=== PATIENT | male | born 1940 | race Caucasian/White ===

== ENCOUNTER 2018-09-16 00:26 | Inpatient (IN) | payer MEDICARE ==
[~2018-09-16] VITALS: Ht 183 cm; Wt 122.0 kg
[2018-09-16] VITALS (7 sets, daily range): BP systolic 109–142; BP diastolic 54–111
--- NOTE | ~2018-09-16 | EKG ---
[place], [place] ELECTROCARDIOGRAM REPORT NAME: ELIZABETH SEWELL UNIT #: [id number] ROOM: 528 DOCTOR: HARPER DRAFT REPORT BIRTHDATE: [birth year] [facility] Test Date: 2018-09-16 Test Time: 00:52:30 Pat Name: ELIZABETH SEWELL Department: Room: 528 Gender: M Portable Canteen Operator: Aurea Juarez : 1940 Requested By: OMER ESQUIVEL DNP Order Number: [id number] Reading MD: Flores Peñaloza Measurements Intervals [place] Rate: 81 P: LA: QRS: 29 QRSD: 144 T: 2 QT: 419 QTc: 487 Interpretive Statements Atrial fibrillation Right bundle branch block Baseline wander in lead(s) V1 Compared to ECG 02/03/2018 18:11:43 Ventricular premature complex(es) no longer present Electronically Signed On 09-18-2018 8:59:00 PDT by Flores Peñaloza CM:EKGRPT:ELECTROCARDIOGRAM REPORT [id number] OMER SALEEM DRAFT REPORT OMER ESQUIVEL DNP
[~2018-09-16 00:26] MED LIST: HYDROCHLOROTH12.5 M3 PO; LISINOPRIL20 MG PO; LOPRESSOR50 M1 PO; METFORMIN1000 MG PO; NIFEDIPINE ER90 M1 PO; PANTOPRAZOLE SO40 MG PO; SIMVASTATIN80 MG PO; VITAMIN B11000 MCG/M IM; XARE20MG PO
[2018-09-16] MEDS ORDERED: SIMVASTATIN80 MG PO (00:49)
[2018-09-16] MEDS ORDERED: ZESTORETIC 20-1 EACH PO (00:49)
[2018-09-16] MEDS ORDERED: VITAMIN D32000 UNI1 PO (00:50)
[2018-09-16 00:53] LABS: BASO # 0.1 10*3/uL (0.0-0.1); BASO % 0.5 % (0.0-1.0); EOS # 0.1 10*3/uL (0.0-0.4); EOS % 1.3 % (1.0-4.0); HEMATOCRIT 39.9 % (42.0-52.0); HEMOGLOBIN 12.9 g/dl (14.0-18.0); LYMPH # 1.9 10*3/uL (1.3-4.4); LYMPH % 17.9 % (27.0-41.0); MEAN CELL VOLUME 92.8 fl (80.0-94.0); MEAN CORPUSCULAR HGB CONC 32.3 g/dl (33.0-37.0); MEAN PLATELET VOLUME 11.8 fl (9.6-12.3); MONO # 0.7 10*3/uL (0.1-1.0); MONO % 6.8 % (3.0-9.0); NEUT # 7.8 10*3/uL (2.3-7.9); NEUT % 73.2 % (47.0-73.0); PLATELET COUNT AUTOMATED 184 10*3/uL (130-400); RED CELL DISTRI WIDTH 14.6 % (0-14.5); WHITE BLOOD COUNT 10.7 10*3/uL (4.8-10.8)
[2018-09-16 01:02] LABS: INTERNATIONAL NORM RATIO 1.9 (2.0-3.5)
[2018-09-16 01:09] LABS: ALBUMIN 3.7 gm/dl (3.1-4.5); ALKALINE PHOSPHATASE 90 U/L (45-117); BUN 22 mg/dl (7-24); CHLORIDE 106 mmol/L (98-107); CREATININE 1.26 mg/dL (0.70-1.30); POTASSIUM 4.1 mmol/L (3.5-5.1); SGOT/AST 11 IU/L (3-35); SGPT/ALT 15 U/L (12-78); SODIUM 138 mmol/L (136-145); TOTAL PROTEIN 7.4 gm/dL (6.4-8.2)
[2018-09-16 01:10] LABS: TROPONIN I < 0.015 ng/ml (<0.045)
--- NOTE | 2018-09-16 01:27 | NUR ---
PATIENT ATTEMPTED TO URINATE IN URINAL AT THIS TIME WITHOUT SUCCESS. WILL PROMPT PATIENT AGAIN AFTER BIT.
[2018-09-16 02:46] LABS: BILIRUBIN NEGATIVE (NEGATIVE); BLOOD 3+ (NEGATIVE); CLARITY SL CLOUDY (CLEAR); COLOR YELLOW (YELLOW); GLUCOSE NEGATIVE (NEGATIVE); KETONE TRACE (NEGATIVE); LEUKO ESTERASE NEGATIVE (NEGATIVE); NITRITE NEGATIVE (NEGATIVE)
[2018-09-16 02:52] LABS: RBC TNTC rbc/hpf (0-2); WBC 0-2 wbc/hpf (0-5)
--- NOTE | 2018-09-16 05:32 | NUR ---
A 78, admitted to , under the services of RAY Childers DO with a diagnosis of AMBULATORY DISFUNCTION. Chief complaint is FALL AT HOME. Patient arrived via bed from ER. Monitor applied. Initial assessment completed. Vital signs taken and recorded. RAY CHILDERS DO notified of admission to the unit. Orders received. See assessment for past medical history, medications and allergies. Patient and/or family oriented to unit. [facility] visitation policy reviewed. Clothing/patient valuable form completed. ZHEN NEFF
[2018-09-16 06:07] LABS: BASO % 0.3 % (0.0-1.0); EOS # 0.2 10*3/uL (0.0-0.4); EOS % 1.6 % (1.0-4.0); HEMATOCRIT 38.2 % (42.0-52.0); HEMOGLOBIN 12.6 g/dl (14.0-18.0); LYMPH # 2.2 10*3/uL (1.3-4.4); LYMPH % 22.8 % (27.0-41.0); MEAN CELL VOLUME 93.2 fl (80.0-94.0); MEAN CORPUSCULAR HGB 30.7 pg (27.0-31.0); MEAN PLATELET VOLUME 11.9 fl (9.6-12.3); MONO # 0.7 10*3/uL (0.1-1.0); MONO % 6.7 % (3.0-9.0); NEUT # 6.6 10*3/uL (2.3-7.9); NEUT % 68.3 % (47.0-73.0); PLATELET COUNT AUTOMATED 169 10*3/uL (130-400); RED CELL DISTRI WIDTH 14.5 % (0-14.5); WHITE BLOOD COUNT 9.7 10*3/uL (4.8-10.8)
[2018-09-16 06:22] LABS: ALBUMIN 3.5 gm/dl (3.1-4.5); ALKALINE PHOSPHATASE 86 U/L (45-117); BUN 20 mg/dl (7-24); CHLORIDE 108 mmol/L (98-107); CHOLESTEROL 106 mg/dL (<200); CPK 129 U/L (39-308); CREATININE 1.03 mg/dL (0.70-1.30); HDL CHOLESTEROL 29 mg/dl (40-60); LDL CHOLESTEROL 57 mg/dL (9-159); PHOSPHOROUS 2.7 mg/dL (2.5-4.9); POTASSIUM 3.9 mmol/L (3.5-5.1); SGOT/AST 15 IU/L (3-35); SGPT/ALT 14 U/L (12-78); SODIUM 140 mmol/L (136-145); TOTAL PROTEIN 7.1 gm/dL (6.4-8.2); TRIGLYCERIDES 102 mg/dl (<150); VLDL CHOLESTEROL 20 mg/dL (6-40)
--- NOTE | 2018-09-16 06:48 | NUR ---
REVIEWED BY ER NURSE WHEN FAMILY HAD HOME MEDICATIONS IN ER
--- NOTE | 2018-09-16 07:21 | NUR ---
PHYSICAL THERAPY Nursing screen received. PT orders also received. Thank you. Millicent Candelario,PT
--- NOTE | 2018-09-16 08:19 | NUR ---
CALLED [facility] RESIDENT, NO ANSWER. WILL RETRY.
--- NOTE | 2018-09-16 08:21 | NUR ---
DR. GAFFNEY NOTIFIED OF CONSULT
--- NOTE | 2018-09-16 08:45 | NUR ---
PHYSICAL THERAPY Patient evaluated on 5, full evaluation to follow. Continue with PT as per plan of care with fall and acute debility precautions. Will require SNF. PAtient is moderate complexity via chart review, tests and evaluation: 12429. Thank you for this referral. Millicent Candelario,PT
--- NOTE | 2018-09-16 09:32 | NUR ---
Occupational Therapy evaluation completed on 5 with carol roberts to follow. Precautions include morbid obesity, fall risk, IV UE, impaired memory, moderate complexity level 29861 via chart review, testing and evaluation. Recommend OT per POC and SNF to enable max level of ADls and safety. Thank you for this referral. Karolina Olivo OTR/L
[2018-09-16 09:52] LABS: VITAMIN D, 25-HYDROXY 68.3 ng/mL (30-100)
--- NOTE | 2018-09-16 10:40 | NUR ---
NOTIFIED DR GAFFNEY OF NEW CONSULT FOR FOOT CARE WHILE HE ROUNDED.
--- NOTE | 2018-09-16 15:57 | NUR ---
Nursing screen received and Occupational Therapy evaluation completed. Thank you. Karolina Olivo OTR/l
--- NOTE | 2018-09-16 19:00 | NUR ---
PT AWAKE IN BED DURING BEDSIDE SHIFT REPORT. NO C/O VOICED. CALL LIGHT IN REACH.
--- NOTE | 2018-09-16 23:00 | NUR ---
REPORT RECEIVED FROM NEFTALY GIRARD. PATIENT SLEEPING AT THIS TIME. HAS NO COMPLAINTS AT THIS TIME. WILL MONITOR.
[2018-09-17] VITALS: BP 112/54
[2018-09-17 05:43] LABS: ALBUMIN 3.1 gm/dl (3.1-4.5); ALKALINE PHOSPHATASE 86 U/L (45-117); BUN 23 mg/dl (7-24); CHLORIDE 108 mmol/L (98-107); CPK 124 U/L (39-308); CREATININE 1.04 mg/dL (0.70-1.30); POTASSIUM 3.8 mmol/L (3.5-5.1); SGOT/AST 15 IU/L (3-35); SGPT/ALT 14 U/L (12-78); SODIUM 140 mmol/L (136-145); TOTAL PROTEIN 6.4 gm/dL (6.4-8.2)
[2018-09-17 05:55] LABS: BASO % 0.3 % (0.0-1.0); EOS # 0.2 10*3/uL (0.0-0.4); EOS % 1.9 % (1.0-4.0); HEMATOCRIT 36.6 % (42.0-52.0); HEMOGLOBIN 11.9 g/dl (14.0-18.0); LYMPH # 1.8 10*3/uL (1.3-4.4); LYMPH % 20.6 % (27.0-41.0); MEAN CELL VOLUME 93.6 fl (80.0-94.0); MEAN CORPUSCULAR HGB 30.4 pg (27.0-31.0); MEAN CORPUSCULAR HGB CONC 32.5 g/dl (33.0-37.0); MEAN PLATELET VOLUME 12.3 fl (9.6-12.3); MONO # 0.5 10*3/uL (0.1-1.0); MONO % 5.8 % (3.0-9.0); NEUT # 6.3 10*3/uL (2.3-7.9); NEUT % 71.1 % (47.0-73.0); PLATELET COUNT AUTOMATED 141 10*3/uL (130-400); RED BLOOD COUNT 3.91 10*6/uL (4.50-5.90); RED CELL DISTRI WIDTH 14.6 % (0-14.5); WHITE BLOOD COUNT 8.9 10*3/uL (4.8-10.8)
--- NOTE | 2018-09-17 07:10 | NUR ---
PT IS AWAKE AND SITTING UP IN BED AT THIS TIME. REPORT RECIEVED FROM NEFTALY KWOK. PT STATES THAT HE IS FEELING WELL AND HAS NO COMPLAINTS AT THIS TIME. RESPIRATIONS ARE EASY AND NONLABORED. CALL LIGHT WITHIN REACH, BED ALARM ON. WILL CONTINUE TO MONITOR.
[2018-09-17 08:00] VITALS: BP 116/60
--- NOTE | 2018-09-17 10:05 | NUR ---
24 HR CHART CHECK COMPLETE.
[2018-09-17 12:00] VITALS: BP 136/79
[2018-09-17 16:00] VITALS: BP 134/69
[2018-09-17 20:00] VITALS: BP 121/56
--- NOTE | 2018-09-17 21:28 | NUR ---
DR. CLEMENT NOTIFIED OF PATIENT'S GROIN BEING EXCORIATED. NEW ORDER FOR NYSTATIN POWDER.
[2018-09-18] VITALS: BP 133/61
[2018-09-18 06:03] LABS: BUN 28 mg/dl (7-24); CHLORIDE 104 mmol/L (98-107); CREATININE 1.04 mg/dL (0.70-1.30); PHOSPHOROUS 2.3 mg/dL (2.5-4.9); POTASSIUM 3.9 mmol/L (3.5-5.1); SODIUM 138 mmol/L (136-145)
[2018-09-18 06:04] LABS: BASO % 0.2 % (0.0-1.0); EOS # 0.1 10*3/uL (0.0-0.4); EOS % 0.8 % (1.0-4.0); HEMATOCRIT 35.1 % (42.0-52.0); HEMOGLOBIN 11.5 g/dl (14.0-18.0); LYMPH # 1.6 10*3/uL (1.3-4.4); LYMPH % 12.5 % (27.0-41.0); MEAN CELL VOLUME 92.6 fl (80.0-94.0); MEAN CORPUSCULAR HGB 30.3 pg (27.0-31.0); MEAN CORPUSCULAR HGB CONC 32.8 g/dl (33.0-37.0); MEAN PLATELET VOLUME 12.6 fl (9.6-12.3); MONO # 0.8 10*3/uL (0.1-1.0); NEUT # 10.5 10*3/uL (2.3-7.9); NEUT % 79.9 % (47.0-73.0); PLATELET COUNT AUTOMATED 134 10*3/uL (130-400); RED BLOOD COUNT 3.79 10*6/uL (4.50-5.90); RED CELL DISTRI WIDTH 14.6 % (0-14.5); WHITE BLOOD COUNT 13.1 10*3/uL (4.8-10.8)
--- NOTE | 2018-09-18 07:58 | NUR ---
24 HR CHART CHECK COMPLETE
[2018-09-18 08:00] VITALS: BP 111/51
[2018-09-18 12:00] VITALS: BP 101/84
--- NOTE | 2018-09-18 15:46 | NUR ---
MR. SEWELL HAD 1 EPISODE OF INCONTINENCE OF BOWEL TODAY.STATED HE TRIED TO MAKE IT TO THE RESTROOM. HE WAS CLEANED UP AMD HAS NO FURTHER INCICDENT A THIS TIME.
[2018-09-18 16:00] VITALS: BP 108/55
--- NOTE | 2018-09-18 19:10 | NUR ---
PT IS AWAKE AND SITTING UP IN BED EATING HIS DINNER. HE STATES THAT HE WANTS TO GO BACK HOME BUT THAT HIS FAMILY WANTS HIM TO GO TO A HALF-WAY FOR PT/OT. THERE ARE NO S/S OF DISTRESS OR C/O PAIN MADE AT THIS TIME. BED IS LOW, CALL LIGHT WITHIN REACH. WILL CONTINUE TO MONITOR.
[2018-09-18 20:00] VITALS: BP 121/62
--- NOTE | 2018-09-18 21:59 | NUR ---
24 HR CHART CHECK COMPLETE.
[2018-09-19] VITALS: BP 119/65
[2018-09-19 06:47] LABS: BASO % 0.2 % (0.0-1.0); EOS # 0.1 10*3/uL (0.0-0.4); EOS % 0.6 % (1.0-4.0); HEMATOCRIT 33.1 % (42.0-52.0); HEMOGLOBIN 11.1 g/dl (14.0-18.0); LYMPH # 1.5 10*3/uL (1.3-4.4); LYMPH % 11.9 % (27.0-41.0); MEAN CELL VOLUME 92.2 fl (80.0-94.0); MEAN CORPUSCULAR HGB 30.9 pg (27.0-31.0); MEAN CORPUSCULAR HGB CONC 33.5 g/dl (33.0-37.0); MEAN PLATELET VOLUME 12.6 fl (9.6-12.3); MONO # 0.7 10*3/uL (0.1-1.0); NEUT # 9.9 10*3/uL (2.3-7.9); NEUT % 80.6 % (47.0-73.0); PLATELET COUNT AUTOMATED 122 10*3/uL (130-400); RED BLOOD COUNT 3.59 10*6/uL (4.50-5.90); RED CELL DISTRI WIDTH 14.6 % (0-14.5); WHITE BLOOD COUNT 12.3 10*3/uL (4.8-10.8)
[2018-09-19 07:11] LABS: BUN 33 mg/dl (7-24); CHLORIDE 104 mmol/L (98-107); CREATININE 1.07 mg/dL (0.70-1.30); POTASSIUM 3.9 mmol/L (3.5-5.1); SODIUM 135 mmol/L (136-145)
--- NOTE | 2018-09-19 07:44 | NUR ---
24 HR CHART CHECK COMPLETE
[2018-09-19 08:00] VITALS: BP 116/56
--- NOTE | 2018-09-19 09:45 | NUR ---
PHYSICAL THERAPY Patient seen this am 1:1 for therapy visit and was sittin up EOB following breakfast upon therapist arrival. Patient voices no new c/o's and was joined by 2 of his Sisters for entire therapy session. Patient transfers sit to stand, CGA, demonstrating very slow, steady rise and ambulates 50'x 1 with use of std walker. Patient needed v/c to improve safe step sequence, while improving walker navigation as patient had increased difficulty advancing standard walker. Patient returned to EOB sit and educated on benefits of using a wh walker and agreed to give on a try. Patient ambulated additional 50'x 1, this time with use wh walker, CGA, demonstrating improved smoother gait pattern with less difficulty, however still unsteady during 180 degree turn arounds. Patient returned to EOB sit with mild fatigue and remained with call light, tray table and telephone. Patient stated he felt more comfortable using wh walker and will continue per POC as tolerated. Total treatment time 17 minutes. Devan Laureano, ARTS MANAGER
--- NOTE | 2018-09-19 11:05 | NUR ---
OT NOTE Pt was seen this A.M. 1:1 for 15 minute OT session. Upon arrival pt was sitting upright on the EOB. Pt identified by name and and had no complaints at this time. Sit to stand completed from bed level with Saul and use of w/w for UE support. Functional mobility completed into the bathroom with CGA and use of w/w. Pt required min verbal prompts throughout to correct walker safety due to poor navigation and picking all four points off the ground. There he transferred on to standard commode with CGA and use of grab bar. Clothing management completed with CGA for safety. Pt transferred off standard commode with modA due to low surface. Pt then stood sink side while washing his hands with CGA. Pt had one LOB backwards that required modA to correct. Educated pt on safety with the walker while at the sink due to staying back a far distance and off to the R side. Pt then returned to the EOB where he was left sitting upright with call light in hand, tray table in place, and family at bedside. Continue with POC as able. ANA Reza/Nima
[2018-09-19 12:00] VITALS: BP 103/61
--- NOTE | 2018-09-19 12:45 | NUR ---
Patient requesting a referral to [facility]. Contacted facility and faxed referral. 3 night stay completed, waiting on review/acceptance.
--- NOTE | 2018-09-19 13:35 | NUR ---
Patient is accepted to [facility], 3 night stay complete, hospital exemption complete. Patient is ok to go if medically stable for discharge.
--- NOTE | 2018-09-19 13:58 | NUR ---
Floral Clerk in to talk to patient. Patient states lives at HOME with ALONE. There are FEW steps in the home. Physician: JERAD [facility]acy: [facility] Home health services: NONE Patient's level of ADLs: MODERATE ASSIST Patient has working utilities: YES DME: [facility] Follow-up physician's appointment after d/c: PT WANTS TO GO TO SNF AND WILL MAKE APPOINTMENT AFTER DISCHARGE Does patient want to access PORTAL?: NO Discharge plan PT AND FAMILY IS REQUESTING A SKILLED STAY FOR REHAB PRIOR TO RETURNING HOME. GIVEN LIST OF FACILITIES AND THEY CHOSE [facility] BECAUSE THEY HAD FAMILY MEMBERS THERE BEFORE. EVENT COORDINATOR MARKETING AND SALES INFORMED AND WILL MAKE REFERRAL. WILL CONTINUE TO FOLLOW. . NAT HALE
[2018-09-19] MEDS ORDERED: NYSTOP60 GM T (14:12)
--- NOTE | 2018-09-19 15:18 | NUR ---
Patient discharged to [facility], transportation scheduled for 5 pm with [facility]. dc info faxed, [place] notified, ward service supervisor notified. Attempted to call patients sister and got voicemail. left message.
[2018-09-19] MEDS ORDERED: LASIX20 MG PO (15:36)
--- NOTE | 2018-09-19 16:17 | NUR ---
PHYSICAL THERAPY CO-SIGN I approve of the Phyical Therapy notes written above. SUZANNE LEVIN PT
--- NOTE | 2018-09-19 16:18 | NUR ---
OCCUPATIONAL THERAPY CO-SIGN I approve of the Occupational Therapy notes written above. NAYA HUDSON OTR/Nima
--- NOTE | 2018-09-19 17:05 | NUR ---
REPORT CALLED TO MAILE HIGGINBOTHAM AT [facility]
--- NOTE | 2018-09-19 18:49 | NUR ---
PT LEFT VIA WHEELCHAIR ACCOMPANIED BY WHIT FROM [facility] IN THE CARE OF HIS SISTER. PT BEING TAKEN TO [facility]. PACKET SENT WITH PT.
== END 2018-09-19 18:49 | disposition other institution (70) | DRG 682 ==
LOC: ED 00:26 → 5E 03:27
PROVIDERS: Emergency Medicine Emergency Medical Services; Internal Medicine; Nurse Practitioner Family; ADMIT Emergency Medicine
DX: N17.0 Acute kidney failure with tubular necrosis (principal); I50.21 Acute systolic (congestive) heart failure; E44.0 Moderate protein-calorie malnutrition; E66.01 Morbid (severe) obesity due to excess calories; I48.2 Chronic atrial fibrillation; R26.2 Difficulty in walking, not elsewhere classified; D50.9 Iron deficiency anemia, unspecified; R31.9 Hematuria, unspecified; Z66 Do not resuscitate; Z51.5 Encounter for palliative care; B35.1 Tinea unguium; E11.65 Type 2 diabetes mellitus with hyperglycemia; E78.5 Hyperlipidemia, unspecified; E83.42 Hypomagnesemia; D72.829 Elevated white blood cell count, unspecified; Z53.29 Procedure and treatment not carried out because of patient's decision for other reasons; E86.0 Dehydration; E83.39 Other disorders of phosphorus metabolism; I11.0 Hypertensive heart disease with heart failure; S30.0XXA Contusion of lower back and pelvis, initial encounter; R33.9 Retention of urine, unspecified; W18.30XA Fall on same level, unspecified, initial encounter; Y93.89 Activity, other specified; Y92.098 Other place in other non-institutional residence as the place of occurrence of the external cause; Y99.8 Other external cause status; Z87.891 Personal history of nicotine dependence; Z79.899 Other long term (current) drug therapy; Z79.01 Long term (current) use of anticoagulants; Z68.36 Body mass index [BMI] 36.0-36.9, adult

== ENCOUNTER 2018-11-03 16:08 | Inpatient (IN) | payer MEDICARE ==
[~2018-11-03] VITALS: Ht 182.8 cm; Wt 107.6 kg
--- NOTE | ~2018-11-03 | EKG ---
[place], [place] ELECTROCARDIOGRAM REPORT NAME: ELIZABETH SEWELL UNIT #: [id number] ROOM: 412 DOCTOR: HARPER DRAFT REPORT BIRTHDATE: [birth year] [facility] Test Date: 2018-11-03 Test Time: 16:58:30 Pat Name: ELIZABETH SEWELL Department: Room: 412 Gender: M Yard Person: : 1940 Requested By: OMER ESQUIVEL DNP Order Number: [id number] Reading MD: Crystal Cardona MD Measurements Intervals [place] Rate: 111 P: GA: QRS: 9 QRSD: 140 T: 19 QT: 369 QTc: 502 Interpretive Statements Atrial fibrillation Ventricular premature complex Right bundle branch block Compared to ECG 09/16/2018 00:52:30 Ventricular premature complex(es) now present Electronically Signed On 11-16-2018 3:32:26 PDT by Crystal Cardona MD CM:EKGRPT:ELECTROCARDIOGRAM REPORT [id number] OMER ESQUIVEL DNP EPIPHANY DRAFT REPORT OMER ESQUIVEL DNP
[~2018-11-03 16:08] MED LIST changes: +LASIX20 MG PO; +NYSTOP60 GM T; +VITAMIN D32000 UNI1 PO; +ZESTORETIC 20-1 EACH PO
[2018-11-03 16:15] VITALS: BP 132/72
--- NOTE | 2018-11-03 17:00 | NUR ---
THIS PT IS AWAKE/ALERT TO PERSON AND PLACE NOW. FAMILY WHO IS WITH PT AT THIS TIME INDICATES THAT HE IS UNABLE TO CARE FOR HIMSELF ALONE AT HOME ANY LONGER. HE IS ONLY ABLE TO WALK VERY SHORT DISTANCES WITH A WALKER. THEY ARE INTERESTED IN [facility] PLACEMENT FOR HIM. PT INDICATES THAT HE HAS TROUBLE WALKING. MOON HIGGINBOTHAM
[2018-11-03 17:19] LABS: BASO # 0.1 10*3/uL (0.0-0.1); BASO % 0.5 % (0.0-1.0); EOS # 0.4 10*3/uL (0.0-0.4); EOS % 3.5 % (1.0-4.0); HEMATOCRIT 43.1 % (42.0-52.0); LYMPH # 2.4 10*3/uL (1.3-4.4); LYMPH % 21.8 % (27.0-41.0); MEAN CELL VOLUME 90.4 fl (80.0-94.0); MEAN CORPUSCULAR HGB 29.4 pg (27.0-31.0); MEAN CORPUSCULAR HGB CONC 32.5 g/dl (33.0-37.0); MEAN PLATELET VOLUME 10.7 fl (9.6-12.3); MONO # 0.6 10*3/uL (0.1-1.0); MONO % 5.5 % (3.0-9.0); NEUT # 7.4 10*3/uL (2.3-7.9); NEUT % 68.1 % (47.0-73.0); PLATELET COUNT AUTOMATED 314 10*3/uL (130-400); RED BLOOD COUNT 4.77 10*6/uL (4.50-5.90); WHITE BLOOD COUNT 10.9 10*3/uL (4.8-10.8)
[2018-11-03 17:30] LABS: ACT PARTIAL THROMBO TIME 29.9 SECONDS (20.0-32.1); INTERNATIONAL NORM RATIO 1.1 (2.0-3.5)
[2018-11-03 17:34] LABS: ALBUMIN 3.3 gm/dl (3.1-4.5); ALKALINE PHOSPHATASE 109 U/L (45-117); BUN 33 mg/dl (7-24); CHLORIDE 103 mmol/L (98-107); CREATININE 1.31 mg/dL (0.70-1.30); LIPASE 203 U/L (73-393); POTASSIUM 4.4 mmol/L (3.5-5.1); SGOT/AST 15 IU/L (3-35); SGPT/ALT 18 U/L (12-78); SODIUM 137 mmol/L (136-145); TOTAL PROTEIN 8.4 gm/dL (6.4-8.2)
[2018-11-03 17:36] LABS: TROPONIN I < 0.015 ng/ml (<0.045)
--- NOTE | 2018-11-03 17:49 | NUR ---
LA 3.0 PLANT SUPERINTENDENT ALVIN NOTIFIED
[2018-11-03 18:02] LABS: BILIRUBIN NEGATIVE (NEGATIVE); BLOOD 2+ (NEGATIVE); CLARITY SL CLOUDY (CLEAR); COLOR YELLOW (YELLOW); GLUCOSE NEGATIVE (NEGATIVE); KETONE TRACE (NEGATIVE); LEUKO ESTERASE 3+ (NEGATIVE); NITRITE POSITIVE (NEGATIVE); PH 5.5 (5.0-9.0); UROBILINOGEN 0.2 E.U./dl (0.2-1.0)
[2018-11-03 18:10] LABS: BACTERIA 1+; MUCOUS 1+; RBC 16-20 rbc/hpf (0-2); WBC 21-30 wbc/hpf (0-5)
[2018-11-03 20:30] VITALS: BP 108/86
--- NOTE | 2018-11-03 20:30 | NUR ---
A 78, admitted to , under the services of FELIPE Guidry DO with a diagnosis of UTI, SEPSIS. Chief complaint is INABILITY TO AMBULATE. Patient arrived via bed from ER. Monitor applied. Initial assessment completed. Vital signs taken and recorded. FELIPE GUIDRY DO notified of admission to the unit. Orders received. See assessment for past medical history, medications and allergies. Patient and/or family oriented to unit. [facility] Clothing/patient valuable form completed. FLOR GONZALES
--- NOTE | 2018-11-03 22:00 | NUR ---
NOTIFIED DR. TAYLOR MEDICATIONS WERE UNABLE TO BE VERIFIED PATIENTS SISTER LEFT WITH MED LIST AND THE PATIENT GOES THROUGHT HE VA SO THERE IS NO CLAIM HISTORY. ALSO WANTD TO KNOW IF WITH HISTORY OF CHF IF SHE WANTED THE SECOND BAG RAN AT 999 LIKE WAS ORDERED IN ER, BECAUSE CURRENTLY THIS NURSE HAS IT RUNNING AT 80. SHE STATED TO KEEP THE BAG AT 80 THAT WAS FINE THE PATIENT HAS PITTING EDEMA TO LOWER EXTREMITIES
--- NOTE | 2018-11-03 23:40 | NUR ---
PT SLEEPING. NO DISTRESS NOTED. CALL LIGHT WITHIN REACH, WILL MONITOR
[2018-11-04] VITALS: BP 126/69
[2018-11-04 03:55] LABS: BILIRUBIN NEGATIVE (NEGATIVE); BLOOD 1+ (NEGATIVE); CLARITY SL CLOUDY (CLEAR); COLOR YELLOW (YELLOW); GLUCOSE NEGATIVE (NEGATIVE); KETONE NEGATIVE (NEGATIVE); LEUKO ESTERASE 2+ (NEGATIVE); NITRITE POSITIVE (NEGATIVE); SPECIFIC GRAVITY 1.015 (1.005-1.030); UROBILINOGEN 0.2 E.U./dl (0.2-1.0)
[2018-11-04 04:02] LABS: BACTERIA 1+; RBC 16-20 rbc/hpf (0-2); WBC 41-50 wbc/hpf (0-5)
[2018-11-04 06:23] LABS: BASO # 0.1 10*3/uL (0.0-0.1); BASO % 0.6 % (0.0-1.0); EOS # 0.3 10*3/uL (0.0-0.4); EOS % 3.7 % (1.0-4.0); HEMATOCRIT 39.4 % (42.0-52.0); HEMOGLOBIN 12.6 g/dl (14.0-18.0); LYMPH # 2.3 10*3/uL (1.3-4.4); MEAN CELL VOLUME 90.6 fl (80.0-94.0); MEAN PLATELET VOLUME 10.8 fl (9.6-12.3); MONO # 0.6 10*3/uL (0.1-1.0); MONO % 6.1 % (3.0-9.0); NEUT # 5.8 10*3/uL (2.3-7.9); PLATELET COUNT AUTOMATED 261 10*3/uL (130-400); RED BLOOD COUNT 4.35 10*6/uL (4.50-5.90); RED CELL DISTRI WIDTH 14.1 % (0-14.5); WHITE BLOOD COUNT 9.1 10*3/uL (4.8-10.8)
[2018-11-04 06:35] LABS: CHLORIDE 106 mmol/L (98-107); POTASSIUM 3.9 mmol/L (3.5-5.1); SODIUM 139 mmol/L (136-145)
[2018-11-04 06:51] LABS: ACT PARTIAL THROMBO TIME 27.6 SECONDS (20.0-32.1); INTERNATIONAL NORM RATIO 1.1 (2.0-3.5)
--- NOTE | 2018-11-04 06:51 | NUR ---
PHYSICAL THERAPY Nursing screen received. PT orders also received. Thank you. Millicent Candelario,PT
[2018-11-04 06:52] LABS: ALBUMIN 2.9 gm/dl (3.1-4.5); ALKALINE PHOSPHATASE 89 U/L (45-117); BUN 27 mg/dl (7-24); CREATININE 0.92 mg/dL (0.70-1.30); PHOSPHOROUS 3.3 mg/dL (2.5-4.9); SGOT/AST 11 IU/L (3-35); SGPT/ALT 13 U/L (12-78); TOTAL PROTEIN 7.3 gm/dL (6.4-8.2)
--- NOTE | 2018-11-04 07:38 | NUR ---
DR. SIDHU NOTIFIED OF CONSULT
[2018-11-04 08:00] VITALS: BP 128/74
--- NOTE | 2018-11-04 08:29 | NUR ---
Patient not available for OT evaluation as he was eating and with nursing for am care. Karolina Olivo OTR/l
--- NOTE | 2018-11-04 09:05 | NUR ---
PHYSICAL THERAPY 8:29 Eating breakfast. 8:45 In the restroom. Millicent Candelario,PT
[2018-11-04 09:47] VITALS: BP 119/32
--- NOTE | 2018-11-04 10:39 | NUR ---
Occupational Therapy evaluation completed on 4 with full eval to follow. Precautions include wheeled walker use, back pain/fall risk,low complexity level 29166 via chart review, testing and evaluation. Recommend OT per POC and snf to enable max level of safety and ADls. Thank you for this referral. Karolina Olivo OTR/l
--- NOTE | 2018-11-04 11:02 | NUR ---
PHYSICAL THERAPY Patient evaluated on 4, full evaluation to follow. Continue with PT as per plan of care with fall, alarm and acute debility precautions. Will require SNF. PAtient is moderate complexity via chart review, tests and evaluation: 32876. Thank you for this referral. Millicent Candelario,PT
--- NOTE | 2018-11-04 11:46 | NUR ---
Bakeshop Cleaner in to talk to patient. Patient states lives at HOME with SISTER. There are FEW steps in the home. Physician: [facility] Pharmacy: [facility]: PT STATES NONE Patient's level of ADLs: MODERATE ASSIST Patient has working utilities: YES DME: WALKER Follow-up physician's appointment after d/c: WILL BE MADE BY HOSPITALIST NURSE DIRECTOR ON DISCHARGE Does patient want to access PORTAL?: NO Discharge plan PT STATES HE WAS AT [facility] FOR 20 DAYS THEN LEFT AND MOVED IN WITH HIS SISTER. STATES HE IS TOO MUCH FOR HIS SISTER TO CARE FOR AND WANTS TO GO BACK TO A SNF. STATES HIS SISTER WILL BE IN LATER AND WANTS ME TO SPEAK TO HER ABOUT SKILLED STAY. WILL DISCUSS WITH SISTER WHEN SHE COMES IN. WILL CONTINUE TO FOLLOW. . NAT HALE
[2018-11-04 11:58] VITALS: BP 130/50
--- NOTE | 2018-11-04 12:24 | NUR ---
In to see patient with Fiona Coyne casework specialist. Discussed placement options with patient, brother, sister and brother in law. they are stating they are unable to care for patient at home anymore and he needs placement. Patient has used his 20 100% Medicare pay days and doesn't have enough money to pay the copay for snf placement. Family is working on getting patient medicaid but has not yet completed the application. I explained to them we could send his information to [facility] and see if they can accept the patient pending medicaid, they were in agreement. They are going to go to speak with Elaina at [facility]. Contacted [facility] and faxed referral. Waiting on review/acceptance.
--- NOTE | 2018-11-04 14:04 | NUR ---
Nursing screen received and Occupational Therapy referral received. Thank you. Karolina Olivo OTR/l
--- NOTE | 2018-11-04 15:00 | NUR ---
[facility] has accepted this patient and will assist in appying for his medicaid. Hospital exemption complete. 3 night stay required. patient is ok to go to [facility] on Wednesday11/06/18 after 3 nights complete, if he is medically stable for discharge.
[2018-11-04 16:12] VITALS: BP 130/75
[2018-11-04] MEDS ORDERED: B121000 MCG/1 IM (17:30)
--- NOTE | 2018-11-04 17:31 | NUR ---
HOME MEDICATION LIST UPDATED FROM VA LIST, NURSE SANDI THAT CURRENTLY HAS PATIENT MADE AWARE.
[2018-11-05] VITALS: BP 129/68
--- NOTE | 2018-11-05 | NUR ---
RESTING IN BED WITH EYES CLOSED. PULSE OX 94% ON ROOM AIR. NO DISTRESS NOTED; CALL LIGHT WITHIN REACH.
[2018-11-05 08:00] VITALS: BP 143/71
--- NOTE | 2018-11-05 08:00 | NUR ---
ALERT AND ORIENTED, UP TO BR X 2 ASSIST, PT AMBULATES INDEPENDENTLY WITH WALKER
[2018-11-05 11:22] VITALS: BP 142/76
[2018-11-05 12:00] VITALS: BP 142/76
--- NOTE | 2018-11-05 14:49 | NUR ---
VS AT BEDSIDE, NO CHANGE IN ASSESSMENT
--- NOTE | 2018-11-05 15:29 | NUR ---
Shift chart check completed.24 HR chart check completed.
[2018-11-05 16:00] VITALS: BP 136/58
--- NOTE | 2018-11-05 16:32 | NUR ---
ON ASSESSMENT PATIENT IS RESTING EASILY IN BED. CLAIMS HE'S GOING "TO BE LEAVING TOMORROW SOMETIME". NO VOICED C/O PAIN OR SHORTNESS OF BREATH. HE'S HAD VISITORS TODAY. SEE ALL APPROPRIATE INTERVENTIONS.
[2018-11-05 20:00] VITALS: BP 118/56
--- NOTE | 2018-11-05 20:00 | NUR ---
RESTING IN BED VISITING WITH FAMILY. HEP LOCK INTACT TO RIGHT ARM; SITE ASYMPTOMATIC. PULSE OX 96% ON ROOM AIR. PT. VOICES NO C/O AT THIS TIME; NO DISTRESS NOTED. CALL LIGHT WITHIN REACH.
--- NOTE | 2018-11-05 22:00 | NUR ---
BLOOD SUGAR 186; COVERAGE GIVEN PER EMAR.
[2018-11-06] VITALS: BP 111/57
--- NOTE | 2018-11-06 06:00 | NUR ---
BLOOD SUGAR 116; NO COVERAGE REQUIRED.
[2018-11-06 08:00] VITALS: BP 121/75
--- NOTE | 2018-11-06 08:28 | NUR ---
24 HR chart check completed.
--- NOTE | 2018-11-06 09:00 | NUR ---
DR LEWIS AND TEAM HERE TO ASSESS PATIENT AND DISCUSS PLAN OF CARE
--- NOTE | 2018-11-06 09:00 | NUR ---
RESTING IN BED WITH NO DISTRESS NOTED. RESPIRATIONS EASY. LUNGS DIMINISHED, CLEAR. PULSE OX 96% RA. TRACE BLE EDEMA. OFFERED ABD EDUCATED REGARDING TEDS, DECLINED. CALL LIGHT WITHIN REACH. NO VOICED COMPLAINTS. BED ALARM MAINTAINED FOR SAFETY
[2018-11-06 12:00] VITALS: BP 130/86
--- NOTE | 2018-11-06 13:15 | NUR ---
SISTER PRESENT AT DESK, VOICES CONCERN OVER DISCHARGE. PER FAMILY, PATIENT WAS TO STAY UNTIL WEDNESDAY. ACCEPTING FACILITY DOES NOT HAVE FUNCTIONING TOILET. DEMANDING TO SPEAK TO . DR LEWIS PRESENT ON FLOOR AND INFORMED.
--- NOTE | 2018-11-06 13:25 | NUR ---
DR LEWIS SPOKE WITH FAMILY. D/C ON HOLD UNTIL WEDNESDAY
--- NOTE | 2018-11-06 15:30 | NUR ---
DR MAGALLON CARDIOLOGY HERE TO ASSESS PATIENT AND DISCUSS PLAN OF CARE. RECORDS FROM NOAH PALACIO
[2018-11-06 16:00] VITALS: BP 125/60
[2018-11-06 20:00] VITALS: BP 111/53
[2018-11-07] VITALS: BP 123/57
[2018-11-07 08:00] VITALS: BP 123/57
--- NOTE | 2018-11-07 09:20 | NUR ---
OT NOTE Pt was seen this A.M. 1:1 for 18 minute OT session. Upon arrival pt was supine in bed. Pt identified by name and and had no complaints at this time. Pt transferred supine to sit EOB with Saul for assist with UB. Sit to stand completed from bed level with Saul and use of w/w for UE support. Functional mobility completed into the bathroom with CGA and use of w/w. There he transferred on/off standard commode with Saul and use of grab bar for UE support. Pt then stood sink side while washing his hands with CGA for safety. Pt required education on safety awareness due to walking away without the walker while standing sink side. Pt was able to correct and had good carry over throughout remaining session. Functional mobility completed back to the EOB with CGA and use of w/w. There he transferred sit to supine with Saul. Pt was left supine in bed with call light in hand, tray table in place, and bed alarm activated for safety. Continue with rec D/C plan to SNF. ANGEL LUIS Reza
--- NOTE | 2018-11-07 09:20 | NUR ---
PHYSICAL THERAPY Patient seen this am 1:1 for therapy visit and was resting supine in bed upon therapist arrival. Patient reports no new c/o's this morning and transfers supine to sit EOB with Min A. Patient completed several sit to stand transfers, CGA with use of walker standing support. Patient ambulates 40'x 2, CGA, wh walker, demonstrating cautious gait pattern. Patient fatigues quickly, requiring seated rest between gait trials. Following gait patient c/o's LE weakness and performed seated B LE therex, all planes, x 20 reps each to increase LE strength. Patient returned to supine in bed and remained with call light, tray table, telephone and bed alarm for safety. Will continue per POC as tolerated, total treatment time 24 minutes. Devan Laureano, BUSINESS CASE ANALYST
--- NOTE | 2018-11-07 11:24 | NUR ---
SPOKE WITH SISTER IAM AND INFORMED HER PT WAS GOING TO [facility] AT 12 NOON BY [facility] WHEELCHAIR VAN. VOICES UNDERSTANDING. WILL CONTINUE TO FOLLOW. LIZ TORO INFORMED SISTER IS OK WITH PT GOING.
--- NOTE | 2018-11-07 11:31 | NUR ---
[facility] stating the patients room is ready, the commode is fixed and the hospital bed family requested is in the room. They also stated their funeral limousine driver had a cancellation and needs to move the pick and shovel man time to noon instead of 1PM. Contacted port warden to inform of new pick and shovel man time. healthcare project manager, Fiona Coyne notified family of pick and shovel man time and that patients room at [facility] is ready.
[2018-11-07] MEDS ORDERED: CIPRO500 MG PO (11:46)
--- NOTE | 2018-11-07 12:14 | NUR ---
MSDIS Discharge instructions reviewed with patient/family. Patient receptive and verbalizes understanding. Follow-up care arranged. Written instructions given to patient/family. BRYAN MCCURDY
--- NOTE | 2018-11-07 15:09 | NUR ---
PHYSICAL THERAPY CO-SIGN I approve of the Phyical Therapy notes written above. SUZANNE LEVIN PT
--- NOTE | 2018-11-09 07:43 | NUR ---
OCCUPATIONAL THERAPY CO-SIGN I approve of the Occupational Therapy notes written above. NAYA HUDSON OTR/Nima
[2019-01-19] MEDS ORDERED: METOPROLOL25 MG PO (15:14)
[2019-01-19] MEDS ORDERED: VITAMIN D-32000 UNI1 PO (15:14)
[2019-01-19] MEDS ORDERED: NIFEDIPINE ER90 M1 PO (15:14)
[2019-01-19] MEDS ORDERED: VITAMIN B1250 MCG PO (15:14)
[2019-01-19] MEDS ORDERED: GLUCOPHAGE500 M1 PO (15:14)
[2019-01-19] MEDS ORDERED: ZESTORETIC 20-1 EACH PO (15:14)
[2019-01-19] MEDS ORDERED: XARE20MG PO (15:14)
[2019-01-19] MEDS ORDERED: LASIX20 MG PO (15:14)
[2019-01-19] MEDS ORDERED: PANTOPRAZOLE SO40 MG PO (15:14)
== END 2018-11-07 12:14 | disposition other institution (70) | DRG 871 ==
LOC: ED 16:08 → 4E 19:18 → EDHOLD 19:18 → 4E 20:06
PROVIDERS: Family Medicine; Nurse Practitioner Family; ADMIT Internal Medicine
PROC: 0HBRXZZ Excision of Toe Nail, External Approach (ICD-10-PCS; principal; 2018-11-04)
DX: A41.9 Sepsis, unspecified organism (principal); N17.0 Acute kidney failure with tubular necrosis; I50.21 Acute systolic (congestive) heart failure; E43 Unspecified severe protein-calorie malnutrition; N30.01 Acute cystitis with hematuria; R65.20 Severe sepsis without septic shock; R26.81 Unsteadiness on feet; E83.42 Hypomagnesemia; E11.65 Type 2 diabetes mellitus with hyperglycemia; E11.40 Type 2 diabetes mellitus with diabetic neuropathy, unspecified; B96.5 Pseudomonas (aeruginosa) (mallei) (pseudomallei) as the cause of diseases classified elsewhere; M10.9 Gout, unspecified; E86.0 Dehydration; I11.0 Hypertensive heart disease with heart failure; I48.2 Chronic atrial fibrillation; B35.1 Tinea unguium; E78.5 Hyperlipidemia, unspecified; E66.01 Morbid (severe) obesity due to excess calories; R79.82 Elevated C-reactive protein (CRP); R29.6 Repeated falls; Z66 Do not resuscitate; Z51.5 Encounter for palliative care; Z79.01 Long term (current) use of anticoagulants; Z87.891 Personal history of nicotine dependence; Z79.899 Other long term (current) drug therapy; Z68.33 Body mass index [BMI] 33.0-33.9, adult

== ENCOUNTER 2019-02-21 02:53 | Emergency (ER) | payer MEDICARE ==
[~2019-02-21] VITALS: Ht 182.8 cm; Wt 108.9 kg
[~2019-02-21 02:53] MED LIST changes: +B121000 MCG/1 IM; +CIPRO500 MG PO; +GLUCOPHAGE500 M1 PO; +METOPROLOL25 MG PO; +VITAMIN B1250 MCG PO; +VITAMIN D-32000 UNI1 PO
[2019-02-21 03:39] LABS: BASO # 0.1 10*3/uL (0.0-0.1); BASO % 0.8 % (0.0-1.0); EOS # 0.4 10*3/uL (0.0-0.4); EOS % 3.9 % (1.0-4.0); HEMATOCRIT 41.6 % (42.0-52.0); HEMOGLOBIN 13.9 g/dl (14.0-18.0); LYMPH # 2.6 10*3/uL (1.3-4.4); LYMPH % 25.5 % (27.0-41.0); MEAN CELL VOLUME 91.4 fl (80.0-94.0); MEAN CORPUSCULAR HGB 30.5 pg (27.0-31.0); MEAN CORPUSCULAR HGB CONC 33.4 g/dl (33.0-37.0); MEAN PLATELET VOLUME 10.9 fl (9.6-12.3); MONO # 0.7 10*3/uL (0.1-1.0); MONO % 7.1 % (3.0-9.0); NEUT # 6.2 10*3/uL (2.3-7.9); NEUT % 62.4 % (47.0-73.0); PLATELET COUNT AUTOMATED 236 10*3/uL (130-400); RED BLOOD COUNT 4.55 10*6/uL (4.50-5.90)
[2019-02-21 03:48] LABS: INTERNATIONAL NORM RATIO 1.1 (2.0-3.5)
[2019-02-21 03:58] LABS: ALBUMIN 3.8 gm/dl (3.1-4.5); CREATININE 1.51 mg/dL (0.70-1.30); POTASSIUM 4.1 mmol/L (3.5-5.1); TOTAL PROTEIN 7.9 gm/dL (6.4-8.2)
[2019-02-21 04:58] LABS: BILIRUBIN 1+ (NEGATIVE); BLOOD 3+ (NEGATIVE); CLARITY CLOUDY (CLEAR); COLOR RED (YELLOW); GLUCOSE NEGATIVE (NEGATIVE); KETONE TRACE (NEGATIVE); LEUKO ESTERASE 1+ (NEGATIVE); NITRITE POSITIVE (NEGATIVE); PH >= 9.0 (5.0-9.0); SPECIFIC GRAVITY 1.015 (1.005-1.030)
[2019-02-21 05:27] LABS: RBC TNTC rbc/hpf (0-2)
== END 2019-02-21 06:56 | disposition short-term general hospital (02) ==
LOC: ED 02:53
PROVIDERS: Emergency Medicine
DX: N39.0 Urinary tract infection, site not specified (principal); R31.9 Hematuria, unspecified; E78.5 Hyperlipidemia, unspecified; I10 Essential (primary) hypertension; E11.65 Type 2 diabetes mellitus with hyperglycemia; Z87.891 Personal history of nicotine dependence; Z79.899 Other long term (current) drug therapy

== ENCOUNTER → 2019-03-29 | Outpatient (CLI) | payer MEDICARE, MEDICAID | END | disposition home or self-care (01) | LOC: US 01:28 | DX: N28.9 Disorder of kidney and ureter, unspecified (principal); N28.1 Cyst of kidney, acquired; N40.0 Benign prostatic hyperplasia without lower urinary tract symptoms; N13.30 Unspecified hydronephrosis ==

== ENCOUNTER 2019-08-06 14:06 | Emergency (ER) | payer OTHER, MEDICAID ==
[~2019-08-06] VITALS: Ht 182.8 cm; Wt 113.4 kg
[2019-08-06 15:18] LABS: BASO % 0.3 % (0.0-1.0); EOS # 0.8 10*3/uL (0.0-0.4); EOS % 7.5 % (1.0-4.0); HEMATOCRIT 40.4 % (42.0-52.0); HEMOGLOBIN 13.4 g/dl (14.0-18.0); LYMPH # 0.5 10*3/uL (1.3-4.4); LYMPH % 4.8 % (27.0-41.0); MEAN CELL VOLUME 92.9 fl (80.0-94.0); MEAN CORPUSCULAR HGB 30.8 pg (27.0-31.0); MEAN CORPUSCULAR HGB CONC 33.2 g/dl (33.0-37.0); MEAN PLATELET VOLUME 10.7 fl (9.6-12.3); MONO # 0.1 10*3/uL (0.1-1.0); MONO % 1.2 % (3.0-9.0); NEUT # 8.6 10*3/uL (2.3-7.9); NEUT % 85.8 % (47.0-73.0); PLATELET COUNT AUTOMATED 255 10*3/uL (130-400); RED BLOOD COUNT 4.35 10*6/uL (4.50-5.90); RED CELL DISTRI WIDTH 13.4 % (0-14.5)
[2019-08-06 15:22] LABS: BILIRUBIN NEGATIVE (NEGATIVE); CLARITY CLOUDY (CLEAR); COLOR ORANGE (YELLOW); GLUCOSE NEGATIVE (NEGATIVE); KETONE NEGATIVE (NEGATIVE)
[2019-08-06 15:23] LABS: BLOOD 3+ (NEGATIVE); LEUKO ESTERASE 1+ (NEGATIVE); NITRITE NEGATIVE (NEGATIVE); PH 7.5 (5.0-9.0); SPECIFIC GRAVITY 1.015 (1.005-1.030); UROBILINOGEN 0.2 E.U./dl (0.2-1.0)
[2019-08-06 15:24] LABS: BACTERIA 2+; EPITHELIAL CELLS 0-2; HYALINE CAST 0-2; RBC TNTC rbc/hpf (0-2)
[2019-08-06 15:25] LABS: MUCOUS 1+
[2019-08-06 15:28] LABS: INTERNATIONAL NORM RATIO 1.3 (2.0-3.5)
[2019-08-06 15:32] LABS: ALBUMIN 3.4 gm/dl (3.1-4.5); ALKALINE PHOSPHATASE 59 U/L (45-117); BUN 27 mg/dl (7-24); CHLORIDE 103 mmol/L (98-107); CREATININE 1.35 mg/dL (0.70-1.30); POTASSIUM 3.9 mmol/L (3.5-5.1); SGOT/AST 12 IU/L (3-35); SGPT/ALT 17 U/L (12-78); SODIUM 137 mmol/L (136-145); TOTAL PROTEIN 7.1 gm/dL (6.4-8.2)
[2019-08-06] MEDS ORDERED: MACROBID100 M1 PO (17:04)
== END 2019-08-06 17:07 | disposition other institution (70) ==
LOC: ED 14:06
PROVIDERS: Physician Assistant
DX: N39.0 Urinary tract infection, site not specified (principal); E11.9 Type 2 diabetes mellitus without complications; I11.0 Hypertensive heart disease with heart failure; I50.9 Heart failure, unspecified; I48.91 Unspecified atrial fibrillation; M10.9 Gout, unspecified; E78.00 Pure hypercholesterolemia, unspecified; Z79.899 Other long term (current) drug therapy; Z79.01 Long term (current) use of anticoagulants

== ENCOUNTER 2019-12-19 18:35 | Observation (INO) | payer OTHER, MEDICAID ==
[2019-12-19] VITALS (8 sets, daily range): BP systolic 108–129; BP diastolic 53–67
[~2019-12-19] VITALS: Ht 182.8 cm; Wt 118.0 kg
[~2019-12-19 18:35] MED LIST changes: +MACROBID100 M1 PO
[2019-12-19 18:50] LABS: HEMATOCRIT 37.6 % (42.0-52.0); MEAN CELL VOLUME 89.7 fl (80.0-94.0); MEAN CORPUSCULAR HGB 30.5 pg (27.0-31.0); MEAN PLATELET VOLUME 11.4 fl (9.6-12.3); PLATELET COUNT AUTOMATED 209 10*3/uL (130-400); RED BLOOD COUNT 4.19 10*6/uL (4.50-5.90); RED CELL DISTRI WIDTH 13.3 % (0-14.5); WHITE BLOOD COUNT 19.3 10*3/uL (4.8-10.8)
[2019-12-19 19:01] LABS: ACT PARTIAL THROMBO TIME 34.7 SECONDS (20.0-32.1); INTERNATIONAL NORM RATIO 1.4 (2.0-3.5)
[2019-12-19 19:06] LABS: ALBUMIN 3.5 gm/dl (3.1-4.5); ALKALINE PHOSPHATASE 50 U/L (45-117); BUN 29 mg/dl (7-24); CHLORIDE 102 mmol/L (98-107); PLATELET SUFFICIENCY NORMAL (NORMAL); POTASSIUM 4.1 mmol/L (3.5-5.1); SGOT/AST 9 IU/L (3-35); SGPT/ALT 17 U/L (12-78); SODIUM 134 mmol/L (136-145); TOTAL CELLS COUNTED 100 #CELLS; TOTAL PROTEIN 7.4 gm/dL (6.4-8.2)
--- NOTE | 2019-12-19 19:10 | NUR ---
NURSE TO NURSE REPORT GIVEN TO THIS RN
[2019-12-19 19:11] LABS: TROPONIN I < 0.015 ng/ml (<0.045)
--- NOTE | 2019-12-19 19:51 | NUR ---
PT REMAINS W/O ACUTE DISTRESS NOTED,SAFETY PRECAUTIONS INTACT AND CALL LIGHT WITHIN REACH,NO ADDITIONAL COMPLAINTS VOICED.
--- NOTE | 2019-12-19 20:11 | NUR ---
PT POSITIONED FOR COMFORT AND PT UNABLE TO VOID @ THIS TIME,PT ACKNOWLEDGED UNDERSTANING TO NOTIFY STAFF(USE OF CALL LIGHT)WHEN ABLE TO PROVIDE A SAMPLE.
--- NOTE | 2019-12-19 20:30 | NUR ---
PATIENT UNABLE TO PROVIDE UA SPECIMEN AT THIS TIME, WILL CHECK BACK WITH PATIENT. VOICES NO COMPLAINTS AT THIS TIME. NO ACUTE DISTRESS. RN WILL CONT TO MONITOR
[2019-12-19 21:08] LABS: BILIRUBIN NEGATIVE (NEGATIVE); BLOOD 1+ (NEGATIVE); CLARITY SL CLOUDY (CLEAR); COLOR YELLOW (YELLOW); GLUCOSE NEGATIVE (NEGATIVE); KETONE NEGATIVE (NEGATIVE); LEUKO ESTERASE 3+ (NEGATIVE); NITRITE NEGATIVE (NEGATIVE); SPECIFIC GRAVITY 1.015 (1.005-1.030); UROBILINOGEN 0.2 E.U./dl (0.2-1.0)
[2019-12-19 21:09] LABS: BACTERIA 4+; MUCOUS TRACE; WBC TNTC wbc/hpf (0-5)
[2019-12-20 00:30] VITALS: BP 113/59
--- NOTE | 2019-12-20 00:30 | NUR ---
Time: 34 A 79 year old MALE admitted to under services of JOSSE NORTH DO. Pt. arrived [place] stretcher from [place]. Chief complaint: WEAKNESS, SOB. DOMINIC PRIEST
[2019-12-20] MEDS ORDERED: COLCRYS0.6 M1 PO (00:57)
[2019-12-20] MEDS ORDERED: PROSCAR5 M1 PO (01:04)
[2019-12-20] MEDS ORDERED: ZESTRIL10 MG PO (01:05)
[2019-12-20] MEDS ORDERED: METOPROLOL25 MG PO (01:08)
[2019-12-20] MEDS ORDERED: TAMSULOSIN HCL0.4 MG PO (01:10)
--- NOTE | 2019-12-20 01:11 | NUR ---
MED REC UP TO DATE, DR SALVADOR NOTIFIED
[2019-12-20 08:00] VITALS: BP 120/60
--- NOTE | 2019-12-20 08:12 | NUR ---
MANAGEMENT PROFESSOR SPOKE WITH [facility]. THEY WOULD LIKE TO HAVE THE RESULTS BACK FROM COVID TEST BEFORE PATIENT WOULD RETURN TO THE FACILITY.
--- NOTE | 2019-12-20 08:37 | NUR ---
ASSESSMENT COMPLETE WITH NO INCIDENCE. PT IS SITTING UP IN BED AND HAS NO COMPLAINTS AT THIS TIME. HE DENIES COMPLAINTS OF SOB AT THIS TIME. RESPIRATIONS ARE RELAXED AND REGULAR AT THIS TIME. CALL LIGHT NEAR PATIENT, WILL CONTINUE TO MONITOR
--- NOTE | 2019-12-20 10:05 | NUR ---
CALLED DR LUGO AFTER I CAME TO THE DESK AND THE SECTION GANG WORKER SAID THAT DR CHIU WANTS A D-DIMER ORDER PLACED. SHE STATES TO HOLD OFF ON THAT, AND THEY WILL BE IN SOON TO SEE THAT PATIENT
--- NOTE | 2019-12-20 10:48 | NUR ---
PHYSICAL THERAPY Physical Therapy evaluation completed on 5E with full evaluation to follow. Low complexity PT evaluation per chart review and evaluation, [id number]. Recommend physical therapy per plan of care and return to [facility] with PT services upon discharge. Thank you for this referral. Erika Fink,PT,DPT
--- NOTE | 2019-12-20 11:51 | NUR ---
Occupational Therapy evaluation completed on 5E with full evaluation to follow. Recommend occupational therapy per plan of care and return to assisted living facility with home health upon discharge. Thank you for this referral. Verna Garay OTR/L
[2019-12-20 12:00] VITALS: BP 118/71
--- NOTE | 2019-12-20 14:58 | NUR ---
IN PT ROOM AT THIS TIME, HE IS SLEEPING. APPEARS TO BE IN NO DISTRESS. RESPIRATIONS ARE RELAXED AND REGULAR. CALL LIGHT NEAR PATIENT, WILL CONTINUE TO MONITOR
[2019-12-20 16:00] VITALS: BP 119/51
[2019-12-20 20:00] VITALS: BP 107/48
[2019-12-21] VITALS: BP 121/61
[2019-12-21 06:48] LABS: BASO % 0.3 % (0.0-1.0); EOS # 0.3 10*3/uL (0.0-0.4); EOS % 3.4 % (1.0-4.0); HEMATOCRIT 36.8 % (42.0-52.0); LYMPH # 1.9 10*3/uL (1.3-4.4); MEAN CELL VOLUME 92.7 fl (80.0-94.0); MEAN CORPUSCULAR HGB 30.2 pg (27.0-31.0); MEAN CORPUSCULAR HGB CONC 32.6 g/dl (33.0-37.0); MEAN PLATELET VOLUME 11.5 fl (9.6-12.3); MONO # 0.7 10*3/uL (0.1-1.0); MONO % 7.6 % (3.0-9.0); NEUT # 6.2 10*3/uL (2.3-7.9); NEUT % 67.4 % (47.0-73.0); PLATELET COUNT AUTOMATED 198 10*3/uL (130-400); RED BLOOD COUNT 3.97 10*6/uL (4.50-5.90); RED CELL DISTRI WIDTH 13.5 % (0-14.5); WHITE BLOOD COUNT 9.2 10*3/uL (4.8-10.8)
--- NOTE | 2019-12-21 07:16 | NUR ---
CALLED DR LUGO PT IS TO BE NON MONITORED NOT MONITORED. WILL TAKE OFF MONITOR
[2019-12-21 07:25] LABS: BUN 21 mg/dl (7-24); CHLORIDE 107 mmol/L (98-107); CHOLESTEROL 166 mg/dL (<200); POTASSIUM 3.9 mmol/L (3.5-5.1); SODIUM 138 mmol/L (136-145); TRIGLYCERIDES 110 mg/dl (<150); VLDL CHOLESTEROL 22 mg/dL (6-40)
[2019-12-21 07:29] LABS: CREATININE 0.97 mg/dL (0.70-1.30); HDL CHOLESTEROL 34 mg/dl (40-60); LDL CHOLESTEROL 110 mg/dL (9-159)
--- NOTE | 2019-12-21 07:44 | NUR ---
IN PT ROOM TO TAKE HIM OFF OF THE INSPECTOR HANDBAG FRAMES AND EXPLAIN WHY. PT HAS NO COMPLAINTS AT THIS TIME. BREAKFAST ORDERED AT THIS TIME. CALL LIGHT WITHIN REACH, WILL CONTINUE TO MONITOR
[2019-12-21 08:00] VITALS: BP 118/59
--- NOTE | 2019-12-21 10:10 | NUR ---
CALLED BACK INTO PATIENT ROOM AT THIS TIME, HE STATES "I ONLY HAD 4 PILLS THIS MORNING, NORMALLY I HAVE A CUP FULL". WENT OVER THE MEDICATIONS AGAIN, HE STATES " I DONT KNOW WHAT THOSE PILLS ARE FOR, JUST TELL ME THE NUMBER OF HOW MANY I TOOK". PT SITTING AT SIDE OF BED, PT/OT IN AT THIS TIME. WILL CONTINUE TO MONITOR
--- NOTE | 2019-12-21 10:10 | NUR ---
PHYSICAL THERAPY Patient seen this am 1;1 for therapy visit and was sitting up on EOB upon therapist arrival. Patient identified by name / and presented with IV treatment. Patient was very pleasant, reporting no c/o's pain at this time and completed several sit to stand transfers at bedside SBA x1. Patient ambulates with use of wh walker, SBA, 15'x 1 to bathroom, then additional 40'x 1, while demonstrating a slow, steady raymundo. Patient returned to supine in bed with mild fatigue and was very cautious for fear of falling. Patient remained in bed with call light, tray table, telephone and bed alarm for safety. Will continue per POC as tolerated, total treatment time 16 minutes. Devan Laureano, BOIL OFF WORKER
--- NOTE | 2019-12-21 10:27 | NUR ---
PT/OT ON FLOOR AND HANDS ME 4 PILLS THAT WERE IN PT BED AND ON THE FLOOR. MEDS FLUSHED DOWN THE TOILET. WILL CALL DOCTOR
--- NOTE | 2019-12-21 10:27 | NUR ---
OT NOTE Pt was seen this A.m. 1:1 for 17 minute OT session. Upon arrival pt was supine in bed. Pt identified by name and and had no complaints at this time. Pt transferred supine to sit EOB with CGA. Sit to stand completed from bed level with SBA and use of w/w for UE support. Challenged pt's static standing tolerance needed for increased I in self care tasks and functional transfers, pt was able to tolerate aprox 4 minutes at a time before sitting due to fatigue. Functional mobility was then completed to the bathroom with SBA and use of w/w. There he transferred on/off standard commode with CGA and use of grab bar for UE support. He then stood sink side while washing his hands with SBA for safety. Functional mobility completed back to the EOB where he transferred sit to supine with SBA. There he was left with call light in hand, tray table in place, and bed alarm activated for safety. Continue with POC as able. ANA Mello/Nmia
--- NOTE | 2019-12-21 10:36 | NUR ---
DR JOHNSON IN TO SEE PATIENT AND MADE AWARE THAT PT CUP FELL AND NOT SURE WHAT MEDICATIONS HE HAD THIS MORNING, HE STATES HE ONLY SWALLOWED 4 OF THEM. WILL MONITOR VITALS PER DR LUGO
[2019-12-21 12:00] VITALS: BP 115/60
--- NOTE | 2019-12-21 12:59 | NUR ---
PT LIVES AT [facility] AND PLAN IS TO RETURN WHEN MEDICALLY STABLE. WILL CONTINUE TO FOLLOW.
--- NOTE | 2019-12-21 14:14 | NUR ---
LUIS CALLED AND WONDERING ABOUT WHEN PT WILL BE COMING BACK, UPDATED THEM ON PT
[2019-12-21 16:00] VITALS: BP 127/65
[2019-12-21 20:00] VITALS: BP 126/68
[2019-12-22] VITALS: BP 97/52
[2019-12-22 06:38] LABS: BASO % 0.4 % (0.0-1.0); EOS # 0.3 10*3/uL (0.0-0.4); EOS % 3.8 % (1.0-4.0); HEMATOCRIT 36.5 % (42.0-52.0); LYMPH # 2.2 10*3/uL (1.3-4.4); LYMPH % 27.3 % (27.0-41.0); MEAN CELL VOLUME 92.6 fl (80.0-94.0); MEAN CORPUSCULAR HGB 29.9 pg (27.0-31.0); MEAN CORPUSCULAR HGB CONC 32.3 g/dl (33.0-37.0); MEAN PLATELET VOLUME 11.5 fl (9.6-12.3); MONO # 0.8 10*3/uL (0.1-1.0); MONO % 9.2 % (3.0-9.0); NEUT # 4.8 10*3/uL (2.3-7.9); NEUT % 58.9 % (47.0-73.0); PLATELET COUNT AUTOMATED 190 10*3/uL (130-400); RED BLOOD COUNT 3.94 10*6/uL (4.50-5.90); RED CELL DISTRI WIDTH 13.3 % (0-14.5); WHITE BLOOD COUNT 8.1 10*3/uL (4.8-10.8)
[2019-12-22 07:04] LABS: BUN 17 mg/dl (7-24); CHLORIDE 106 mmol/L (98-107); CREATININE 0.91 mg/dL (0.70-1.30); POTASSIUM 4.1 mmol/L (3.5-5.1); SODIUM 137 mmol/L (136-145)
--- NOTE | 2019-12-22 07:30 | NUR ---
TOOK OVER CARE OF PT AT THIS TIME. PT SITTING UP IN BED, ALERT ORIENTED AND PLEASANT MOOD. NO S/S OF DISTRESS. RESPIRATIONS EASY AND UNLABORED. CALL LIGHT IN REACH.
--- NOTE | 2019-12-22 07:35 | NUR ---
COVID RESULTS ARE BACK. PATIENT CAN RETURN TO [facility] TODAY, IF MEDICALLY STABLE. [facility] FAXED UPDATES TO [facility].
[2019-12-22 08:00] VITALS: BP 133/81
--- NOTE | 2019-12-22 09:29 | NUR ---
OT NOTE Pt seen this date 1:1 for 19 min session. Upon arrival pt seated at EOB and had no complaints at this time. Pt identified by name and . Pt doffed/ donned B socks seated at EOB w SBA utilizing compensatory strategy of crossing his foot up over his knee. Challenged pts dynamic sitting balance needed to increase I in ADLs and functional transfers w SBA demonstrating G dynamic sitting balance. Pt completed a sit <> stand from EOB w the use of a ww and CGA demonstrating fair technique. Education provided for transfer technique and proper hand placement followed by another stand from bed level w use of ww and CGA and good carry over. Functional mobility completed into restroom w use of ww and CGA followed by a transfer on/off standard commode w CGA and good hand placement on grab bar. He then ambulated w use of ww and CGA to sink where he completed hand washinig w CGA. Pt ambulated back to bed w use of ww and CGA where he returned to seated at EOB w use of ww and CGA demonstrating good hand placement. At end of session pt seated at EOB w call light in reach. Continue w current D/C to [facility] w . ANA Mello/Nima
[2019-12-22 09:47] VITALS: BP 112/78
--- NOTE | 2019-12-22 10:19 | NUR ---
DR SAGE CONSULT CALLED TO DR KILGORE PER POLICY. CLINICAL NURSE MANAGER STATES THAT SHE WILL GIVE PHYSICIAN THE MESSAGE.
--- NOTE | 2019-12-22 11:14 | NUR ---
DISTRICT PLANT SUPERINTENDENT RECIEVED CALL FROM [facility] ABOUT THE POSSIBILITY OF THE PATIENT NEEDING IVAB. DISTRICT PLANT SUPERINTENDENT SPOKE WITH [facility] WHO STATED THEY WOULD NOT BE ABLE TO PROVIDE IVAB AT THE FACILITY. YANE EXPLAINED THIS TO [facility]. IF PATIENT WOULD NEED IVAB, A PRECERT FOR SNF WOULD BE NEEDED.
[2019-12-22 12:00] VITALS: BP 135/78
--- NOTE | 2019-12-22 12:52 | NUR ---
CHILD DEVELOPMENT CONSULTANT IN TO TALK WITH PT CONTINUES TO STATE HE WANTS TO GO BACK TO [facility]. EXPLAINED TO PT THAT HE MAY NEED TO GO TO A SKILLED FACILITY TO GET IV ANTIBIOTICS PRIOR TO RETURNING TO [facility]. PT STATES HE WILL THINK ABOUT IT.
--- NOTE | 2019-12-22 13:20 | NUR ---
LOT WORKER BACK IN TO TALK WITH PT ABOUT GOING TO A FACILITY TO GET IV ANTIBIOTICS. EXPLAINED TO PT THAT [facility] WOULD TAKE HIS INSURANCE AND THE MEDICATION HE NEEDS. PT STATES NO I HAVE BEEN THERE BEFORE IT IS BAD. PT STATES HE IS FRUSTRATED AND JUST WANTS TO TAKE A PILL AND GO HOME TO [facility]. EXPLAINED TO PT THAT MIGHT NOT BE AN OPTION. PT STATES HE DOESN'T WANT TO TALK ABOUT IT RIGHT NOW.
--- NOTE | 2019-12-22 13:52 | NUR ---
PHYSICAL THERAPY CO-SIGN I approve of the Physical Therapy notes written above. Liv Armando PT
--- NOTE | 2019-12-22 14:12 | NUR ---
OCCUPATIONAL THERAPY CO-SIGN I approve of the Occupational Therapy notes written above. Verna Garay OTR/L
--- NOTE | 2019-12-22 14:28 | NUR ---
LATE NOTE: PER RN RISSA PATIENT STATED HE DID NOT WANT TO GO TO [facility] IF IVAB IS NEEDED. DUE TO PATIENTS INSURANCE SNF PLACEMENT IS LIMITED. EMBALMER APPRENTICE REACHED OUT TO [facility], THEY HAVE NO MALE BEDS AND WILL NOT TAKE THE IVAB MEROPENUM, WHICH THE PATIENT IS CURRENTLY ON. EMBALMER APPRENTICE REACHED OUT TO [facility], THEY HAVE MALE BEDS AND WOULD BE ABLE TO ACCEPT THE MEDICATION BASED OF WHAT IT IS NOW. EMBALMER APPRENTICE DID NOT MAKE THE OFFICAL REFERRAL TO [facility] BLACK TOP ROLLER NAT WENT TO SPEAK WITH THE PATIENT. THE PATIENT STATED HE DID NOT WANT TO GO TO [facility] PER BLACK TOP ROLLER. WILL AWAIT TO SEE FINAL CULTURE REPORTS. [facility] IS NOT ABLE TO ACCEPT THE PATIENT BACK WITH IVAB. PER THE PATIENT HE WANTS TO "TAKE A PILL" AND GO BACK TO [facility].
[2019-12-22] MEDS ORDERED: AUGMENTIN 875875 MG PO (15:52)
[2019-12-22 16:00] VITALS: BP 130/68
--- NOTE | 2019-12-22 16:33 | NUR ---
PT BLADDER SCANNED PER ORDERS GIVEN BY DR SAGE. PT HAS GREATER THAN [address] CC URINE AT THIS TIME. DR SAGE NOTIFIED AND STATES TO NOTIFY THE PRIMARY TEAM. DR LUGO NOTIFIED. ORDERS RECEIVED TO STRAIGHT CATH PATIENT AND THAT IT IS OKAY TO DISCHARGE PATIENT BACK TO [facility]. WILL NOTIFY PATIENT OF THIS.
--- NOTE | 2019-12-22 18:50 | NUR ---
Pt straight cathed with 14f cudae cath, obtained 650 cc of clear yellow urine.
--- NOTE | 2019-12-22 19:53 | NUR ---
REPORT CALLED TO LYNNE AT [facility].
[2019-12-22 20:00] VITALS: BP 117/51
--- NOTE | 2019-12-22 20:05 | NUR ---
PATIENT ASSESSMENT COMPLETED AT THIS TIME. PATIENT WAITING ON TRANSPORTATION BACK TO [facility] AT THIS TIME HE IS DISCHARGED. IV REMOVED AT THIS TIME AT PATIENT INSISTANCE PER HIM "I'M LEAVING SO I WANT IT OUT". PATIENT DENIES ANY PAIN, DISTRESS, OR SHORTNESS OF BREATH AT THIS TIME. WILL CONTINUE TO MONITOR.
--- NOTE | 2019-12-22 21:04 | NUR ---
[facility] HERE TO TRANSPORT PATIENT BACK TO [facility] AT THIS TIME. ALL PERSONAL EFFECTS AND DISCHARGE PAPERWORK SENT WITH AMBULANCE CREW.
== END 2019-12-22 21:04 | disposition other institution (70) ==
LOC: ED 18:35 → 5E 12-20 00:08 → EDHOLD 12-20 00:08 → 5E 12-20 00:17
PROVIDERS: Emergency Medicine; Student in an Organized Health Care Education/Training Program; ADMIT Family Medicine
DX: N39.0 Urinary tract infection, site not specified (principal); E86.0 Dehydration; N17.0 Acute kidney failure with tubular necrosis; A41.9 Sepsis, unspecified organism; R06.02 Shortness of breath; Z20.828 Contact with and (suspected) exposure to other viral communicable diseases; D72.829 Elevated white blood cell count, unspecified; E87.1 Hypo-osmolality and hyponatremia; I11.0 Hypertensive heart disease with heart failure; I50.32 Chronic diastolic (congestive) heart failure; E78.5 Hyperlipidemia, unspecified; E66.9 Obesity, unspecified; I48.92 Unspecified atrial flutter; R73.03 Prediabetes

== ENCOUNTER 2021-11-23 11:06 | Emergency (ER) | payer OTHER ==
[~2021-11-23] VITALS: Ht 182.8 cm; Wt 111.1 kg
[~2021-11-23 11:06] MED LIST changes: +AUGMENTIN 875875 MG PO; +COLCRYS0.6 M1 PO; +PROSCAR5 M1 PO; +TAMSULOSIN HCL0.4 MG PO; +ZESTRIL10 MG PO
[2021-11-23 13:39] LABS: BILIRUBIN Negative (Negative); BLOOD Trace-Lysed (Negative); CLARITY Turbid (Clear); COLOR Yellow (Yellow); GLUCOSE Negative (Negative); KETONE Negative (Negative); LEUKO ESTERASE 3+ (Negative); NITRITE Negative (Negative); PH 5.5 (4.5-8.0); UROBILINOGEN 0.2 E.U./dl (0.0-1.0)
[2021-11-23 13:48] LABS: WBC TNTC wbc/hpf (0-5)
[2021-11-23 13:49] LABS: BACTERIA 4+
[2021-11-23 14:18] LABS: BASO # 0.1 10*3/uL (0.0-0.1); BASO % 0.4 % (0.0-1.0); EOS # 0.1 10*3/uL (0.0-0.4); EOS % 0.7 % (1.0-4.0); HEMATOCRIT 38.2 % (42.0-52.0); LYMPH # 1.6 10*3/uL (1.3-4.4); LYMPH % 10.6 % (27.0-41.0); MEAN CELL VOLUME 95.3 fl (80.0-94.0); MEAN CORPUSCULAR HGB 30.9 pg (27.0-31.0); MEAN CORPUSCULAR HGB CONC 32.5 g/dl (33.0-37.0); MEAN PLATELET VOLUME 10.9 fl (9.6-12.3); MONO # 1.1 10*3/uL (0.1-1.0); MONO % 6.9 % (3.0-9.0); NEUT # 12.4 10*3/uL (2.3-7.9); NEUT % 80.9 % (47.0-73.0); PLATELET COUNT AUTOMATED 242 10*3/uL (130-400); RED BLOOD COUNT 4.01 10*6/uL (4.50-5.90); WHITE BLOOD COUNT 15.3 10*3/uL (4.8-10.8)
[2021-11-23 14:33] LABS: CREATININE 2.38 mg/dL (0.70-1.30); POTASSIUM 4.6 mmol/L (3.5-5.1); TOTAL PROTEIN 6.8 gm/dL (6.4-8.2)
[2021-11-23] MEDS ORDERED: MACROBID100 M1 PO (16:33)
== END 2021-11-23 17:32 ==
LOC: ED 11:06
PROVIDERS: Physician Assistant
DX: N39.0 Urinary tract infection, site not specified (principal); Z79.899 Other long term (current) drug therapy

== ENCOUNTER → 2022-01-22 | Outpatient (CLI) | payer OTHER | END | disposition home or self-care (01) | LOC: CT 14:00 | PROVIDERS: ATTEND Urology | DX: N28.1 Cyst of kidney, acquired (principal); K43.9 Ventral hernia without obstruction or gangrene; N32.81 Overactive bladder; N40.0 Benign prostatic hyperplasia without lower urinary tract symptoms; R32 Unspecified urinary incontinence; R31.9 Hematuria, unspecified ==

== ENCOUNTER 2022-02-22 22:07 | Inpatient (IN) | payer OTHER ==
[~2022-02-22] VITALS: Ht 185.4 cm; Wt 106.2 kg
[2022-02-22 22:00] VITALS: BP 120/69
[2022-02-22] MEDS ORDERED: ERTAPENEM1 GM IV (22:39)
[2022-02-22] MEDS ORDERED: MEROPENEM-1 GM/50 ML IV (22:40)
[2022-02-22] MEDS ORDERED: MILK OF MA400 MG/5 M PO (22:41)
[2022-02-22] MEDS ORDERED: REMERON15 M2 PO (22:41)
[2022-02-22] MEDS ORDERED: VITAMIN D325 MC1 PO (22:42)
[2022-02-22] MEDS ORDERED: MITIGARE0.6 MG PO (22:43)
[2022-02-22] MEDS ORDERED: VITAMIN B1250 MCG PO (22:43)
[2022-02-22] MEDS ORDERED: FLOMAX0.4 MG PO (22:45)
[2022-02-22] MEDS ORDERED: PROAIR HFA8.5 GM INH (22:46)
[2022-02-22] MEDS ORDERED: MAPAP EXTRA ST500 MG PO (22:46)
[2022-02-22] MEDS ORDERED: DRAMAMINE25 M2 PO (22:47)
[2022-02-23] VITALS: BP 94/56
[2022-02-23] MEDS ORDERED: CITALOPRAM10 MG PO (02:07)
[2022-02-23] MEDS ORDERED: METFORMIN HYD1000 MG PO (02:07)
[2022-02-23] MEDS ORDERED: NIFEDIPINE90 MG PO (02:08)
[2022-02-23] MEDS ORDERED: Zaroxolyn,Diul2.5 MG PO (02:09)
[2022-02-23 04:32] LABS: BASO # 0.1 10*3/uL (0.0-0.1); BASO % 0.7 % (0.0-1.0); EOS # 0.6 10*3/uL (0.0-0.4); EOS % 8.4 % (1.0-4.0); HEMATOCRIT 37.5 % (42.0-52.0); LYMPH # 1.7 10*3/uL (1.3-4.4); LYMPH % 23.5 % (27.0-41.0); MEAN CELL VOLUME 96.2 fl (80.0-94.0); MEAN CORPUSCULAR HGB 31.8 pg (27.0-31.0); MEAN CORPUSCULAR HGB CONC 33.1 g/dl (33.0-37.0); MEAN PLATELET VOLUME 11.7 fl (9.6-12.3); MONO # 0.5 10*3/uL (0.1-1.0); MONO % 7.4 % (3.0-9.0); NEUT # 4.3 10*3/uL (2.3-7.9); NEUT % 59.7 % (47.0-73.0); PLATELET COUNT AUTOMATED 198 10*3/uL (130-400); RED CELL DISTRI WIDTH 13.7 % (0-14.5); WHITE BLOOD COUNT 7.2 10*3/uL (4.8-10.8)
[2022-02-23 04:54] LABS: CREATININE 2.47 mg/dL (0.70-1.30); POTASSIUM 4.6 mmol/L (3.5-5.1); TOTAL PROTEIN 6.8 gm/dL (6.4-8.2)
[2022-02-23 06:47] LABS: BILIRUBIN Negative (Negative); BLOOD Trace-Intact (Negative); CLARITY Cloudy (Clear); COLOR Yellow (Yellow); GLUCOSE Negative (Negative); KETONE Negative (Negative); LEUKO ESTERASE 3+ (Negative); NITRITE Positive (Negative); PH 7.5 (4.5-8.0); SPECIFIC GRAVITY 1.015 (1.001-1.030)
[2022-02-23 06:57] LABS: WBC TNTC wbc/hpf (0-5)
[2022-02-23 08:00] VITALS: BP 126/76
[2022-02-23 13:25] VITALS: BP 97/64
[2022-02-23 16:20] VITALS: BP 107/67
[2022-02-23 20:00] VITALS: BP 95/47
[2022-02-24] VITALS: BP 119/68
[2022-02-24 04:41] LABS: BASO % 0.5 % (0.0-1.0); EOS # 0.3 10*3/uL (0.0-0.4); EOS % 5.4 % (1.0-4.0); HEMATOCRIT 33.3 % (42.0-52.0); LYMPH % 17.3 % (27.0-41.0); MEAN CELL VOLUME 97.7 fl (80.0-94.0); MEAN CORPUSCULAR HGB CONC 32.7 g/dl (33.0-37.0); MEAN PLATELET VOLUME 11.5 fl (9.6-12.3); MONO # 0.6 10*3/uL (0.1-1.0); MONO % 10.9 % (3.0-9.0); NEUT # 3.7 10*3/uL (2.3-7.9); NEUT % 65.4 % (47.0-73.0); PLATELET COUNT AUTOMATED 170 10*3/uL (130-400); RED BLOOD COUNT 3.41 10*6/uL (4.50-5.90); WHITE BLOOD COUNT 5.7 10*3/uL (4.8-10.8)
[2022-02-24 04:56] LABS: CREATININE 2.11 mg/dL (0.70-1.30); POTASSIUM 4.3 mmol/L (3.5-5.1); TOTAL PROTEIN 6.4 gm/dL (6.4-8.2)
[2022-02-24 08:00] VITALS: BP 91/51
[2022-02-24] MEDS ORDERED: CIPRO500 MG PO (09:26)
[2022-02-24] MEDS ORDERED: METOPROLOL SUCC25 M2 PO (09:38)
== END 2022-02-24 13:11 | DRG 291 ==
LOC: ICCU 22:07
PROVIDERS: Internal Medicine Critical Care Medicine; Internal Medicine Nephrology; ADMIT Internal Medicine; ATTEND Internal Medicine
DX: I13.0 Hypertensive heart and chronic kidney disease with heart failure and stage 1 through stage 4 chronic kidney disease, or unspecified chronic kidney disease (principal); N17.0 Acute kidney failure with tubular necrosis; N39.0 Urinary tract infection, site not specified; E44.0 Moderate protein-calorie malnutrition; I50.22 Chronic systolic (congestive) heart failure; I48.20 Chronic atrial fibrillation, unspecified; N18.4 Chronic kidney disease, stage 4 (severe); F33.9 Major depressive disorder, recurrent, unspecified; Z20.822 Contact with and (suspected) exposure to COVID-19; E78.2 Mixed hyperlipidemia; I95.9 Hypotension, unspecified; R62.7 Adult failure to thrive; S31.104A Unspecified open wound of abdominal wall, left lower quadrant without penetration into peritoneal cavity, initial encounter; S31.103A Unspecified open wound of abdominal wall, right lower quadrant without penetration into peritoneal cavity, initial encounter; X58.XXXA Exposure to other specified factors, initial encounter; N40.1 Benign prostatic hyperplasia with lower urinary tract symptoms; E11.22 Type 2 diabetes mellitus with diabetic chronic kidney disease; E86.0 Dehydration; E66.9 Obesity, unspecified; B96.20 Unspecified Escherichia coli [E. coli] as the cause of diseases classified elsewhere; K21.00 Gastro-esophageal reflux disease with esophagitis, without bleeding; M19.90 Unspecified osteoarthritis, unspecified site; R33.8 Other retention of urine; Z68.30 Body mass index [BMI] 30.0-30.9, adult; Y93.89 Activity, other specified; Y92.89 Other specified places as the place of occurrence of the external cause; Y99.8 Other external cause status

== ENCOUNTER 2022-03-25 14:00 | Emergency (ER) | payer OTHER ==
[~2022-03-25] VITALS: Wt 113.4 kg
[~2022-03-25 14:00] MED LIST changes: +CITALOPRAM10 MG PO; +DRAMAMINE25 M2 PO; +ERTAPENEM1 GM IV; +FLOMAX0.4 MG PO; +MAPAP EXTRA ST500 MG PO; +MEROPENEM-1 GM/50 ML IV; +METFORMIN HYD1000 MG PO; +METOPROLOL SUCC25 M2 PO; +MILK OF MA400 MG/5 M PO; +MITIGARE0.6 MG PO; +NIFEDIPINE90 MG PO; +PROAIR HFA8.5 GM INH; +REMERON15 M2 PO; +VITAMIN D325 MC1 PO; +Zaroxolyn,Diul2.5 MG PO
[2022-03-25 15:23] LABS: BILIRUBIN Negative (Negative); BLOOD 3+ (Negative); CLARITY Cloudy (Clear); COLOR Red (Yellow); GLUCOSE Negative (Negative); KETONE Negative (Negative); LEUKO ESTERASE 2+ (Negative); NITRITE Negative (Negative); PH 5.5 (4.5-8.0); UROBILINOGEN 0.2 E.U./dl (0.0-1.0)
[2022-03-25 15:28] LABS: BASO % 0.4 % (0.0-1.0); EOS # 0.1 10*3/uL (0.0-0.4); EOS % 1.2 % (1.0-4.0); HEMATOCRIT 34.8 % (42.0-52.0); LYMPH # 1.1 10*3/uL (1.3-4.4); LYMPH % 10.3 % (27.0-41.0); MEAN CELL VOLUME 97.8 fl (80.0-94.0); MEAN CORPUSCULAR HGB 31.5 pg (27.0-31.0); MEAN CORPUSCULAR HGB CONC 32.2 g/dl (33.0-37.0); MONO # 0.7 10*3/uL (0.1-1.0); MONO % 6.7 % (3.0-9.0); NEUT # 8.8 10*3/uL (2.3-7.9); PLATELET COUNT AUTOMATED 257 10*3/uL (130-400); RED BLOOD COUNT 3.56 10*6/uL (4.50-5.90); RED CELL DISTRI WIDTH 13.7 % (0-14.5); WHITE BLOOD COUNT 10.8 10*3/uL (4.8-10.8)
[2022-03-25 15:32] LABS: RBC TNTC rbc/hpf (0-2)
[2022-03-25 15:45] LABS: CREATININE 1.95 mg/dL (0.70-1.30); POTASSIUM 4.4 mmol/L (3.5-5.1); TOTAL PROTEIN 7.6 gm/dL (6.4-8.2)
[2022-03-25] MEDS ORDERED: MITIGARE0.6 MG PO (16:14)
== END 2022-03-25 16:49 ==
LOC: ED 14:00
PROVIDERS: Emergency Medicine
DX: R31.0 Gross hematuria (principal); M10.032 Idiopathic gout, left wrist; I48.91 Unspecified atrial fibrillation; E78.5 Hyperlipidemia, unspecified; I50.9 Heart failure, unspecified; E66.9 Obesity, unspecified; Z79.2 Long term (current) use of antibiotics; Z79.899 Other long term (current) drug therapy; Z68.30 Body mass index [BMI] 30.0-30.9, adult; Z87.891 Personal history of nicotine dependence

== ENCOUNTER 2022-05-11 11:29 | Emergency (ER) | payer OTHER ==
[~2022-05-11] VITALS: Wt 109.1 kg
[2022-05-11] MEDS ORDERED: DULOXETINE HCL30 MG PO (11:58)
[2022-05-11 12:18] LABS: BASO % 0.2 % (0.0-1.0); EOS # 0.1 10*3/uL (0.0-0.4); EOS % 1.6 % (1.0-4.0); HEMATOCRIT 43.2 % (42.0-52.0); LYMPH # 1.6 10*3/uL (1.3-4.4); MEAN CELL VOLUME 95.6 fl (80.0-94.0); MEAN CORPUSCULAR HGB 30.8 pg (27.0-31.0); MEAN CORPUSCULAR HGB CONC 32.2 g/dl (33.0-37.0); MEAN PLATELET VOLUME 10.8 fl (9.6-12.3); MONO # 0.5 10*3/uL (0.1-1.0); MONO % 5.5 % (3.0-9.0); NEUT # 5.9 10*3/uL (2.3-7.9); NEUT % 72.1 % (47.0-73.0); PLATELET COUNT AUTOMATED 374 10*3/uL (130-400); RED BLOOD COUNT 4.52 10*6/uL (4.50-5.90); RED CELL DISTRI WIDTH 13.7 % (0-14.5); WHITE BLOOD COUNT 8.2 10*3/uL (4.8-10.8)
[2022-05-11 12:29] LABS: ACT PARTIAL THROMBO TIME 31.3 SECONDS (20.0-32.1); INTERNATIONAL NORM RATIO 1.2 (2.0-3.5)
[2022-05-11 12:35] LABS: ALKALINE PHOSPHATASE 74 U/L (46-116); BUN 20 mg/dl (9-23); CHLORIDE 100 mmol/L (98-107); CREATININE 1.21 mg/dL (0.70-1.30); LIPASE 29 U/L (12-53); POTASSIUM 4.1 mmol/L (3.4-5.1); SGPT/ALT 11 U/L (10-49); SODIUM 137 mmol/L (136-145); TOTAL PROTEIN 7.4 gm/dL (6.0-8.0)
[2022-05-11 12:54] LABS: BILIRUBIN Negative (Negative); BLOOD Trace-Intact (Negative); CLARITY Turbid (Clear); COLOR Yellow (Yellow); GLUCOSE Negative (Negative); KETONE 1+ (Negative); NITRITE Positive (Negative); PH 8.5 (4.5-8.0); SPECIFIC GRAVITY 1.005 (1.001-1.030); UROBILINOGEN 0.2 E.U./dl (0.0-1.0)
[2022-05-11 12:55] LABS: LEUKO ESTERASE 2+ (Negative)
[2022-05-11 13:01] LABS: BACTERIA 4+; TRIP PHOS CRYSTALS 3+
[2022-05-11] MEDS ORDERED: CIPRO500 MG PO (14:18)
== END 2022-05-11 15:11 ==
LOC: ED 11:29
PROVIDERS: Emergency Medicine
DX: N39.0 Urinary tract infection, site not specified (principal); Z87.891 Personal history of nicotine dependence; Z79.899 Other long term (current) drug therapy

== ENCOUNTER 2022-05-24 08:59 | Emergency (ER) | payer OTHER ==
[~2022-05-24] VITALS: Wt 110.2 kg
[~2022-05-24 08:59] MED LIST changes: +DULOXETINE HCL30 MG PO
== END 2022-05-24 12:00 | disposition home or self-care (01) ==
LOC: ED 08:59
DX: S30.0XXA Contusion of lower back and pelvis, initial encounter (principal); Z79.899 Other long term (current) drug therapy; Z87.891 Personal history of nicotine dependence; W07.XXXA Fall from chair, initial encounter; Y93.89 Activity, other specified; Y92.89 Other specified places as the place of occurrence of the external cause; Y99.8 Other external cause status